=== PATIENT | male | born 1945 | race Caucasian/White ===

== ENCOUNTER → 2017-03-31 | Day surgery (SDC) | payer MEDICARE, OTHER ==
[~2017-03-31] MED LIST: COMPAZINE10 M2 PO; DEXAMETHASONE4 M1 PO; LEVO-T75 MCG PO; LOSARTAN-HCTZ1 EAC1 PO
--- NOTE | ~2017-03-31 | OR ---
Unit #: [id number] #: [id number] Patient: DON MORTON [id number] [facility]. [address] [place], [place] [address] [id number] O MR#: [id number] NAME: DON MORTON ROOM: Date of Procedure: 03/31/2017 Admission Date: 03/31/2017 Surgeon: Casey Vernon Jr., M.D. : 1945 Attending Physician: Casey Vernon Jr., M.D. Primary Care Physician: Kehinde Hancock M.D. OPERATIVE REPORT INDICATIONS FOR PROCEDURE The patient is a 71-year-old white male, who has recently referred to the office for placement of Port-A-Cath. He has cancer and is in need of venous access for chemotherapy. He had a previous Port-A-Cath, but apparently something became a problem with this and it was removed. He is brought in this time for placement of Port-A-Cath in the left subclavian area. The patient understands the procedure including risks, including that of pneumothorax, infection, and problems with the port with thrombosis and consents. PREOPERATIVE DIAGNOSIS Poor venous access in need of chemotherapy for cancer. POSTOPERATIVE DIAGNOSIS Poor venous access in need of chemotherapy for cancer, noting normal anatomy. ANESTHESIA General with LMA and 0.5% Marcaine with epinephrine locally. PROCEDURE PERFORMED Placement of Port-A-Cath, left subclavian area. DESCRIPTION OF PROCEDURE The patient was positioned in supine position. After being anesthetized, he was prepped and draped in routine fashion for placement of Port-A-Cath in the left subclavian area. Two areas were marked with a marking pen, one in the infraclavicular area and the other approximately 6 cm below this. A small 0.5 cm incision was made in the subclavicular area. The introducing needle was introduced into the subclavian vein and a guidewire was introduced down into the superior vena cava and the introducing needle was removed and the dilator introducer was then placed and the dilator and guide were removed and the catheter then inserted with no resistance and advanced down to the superior vena cava. The introducer was removed and a second incision was made approximately 5 to 6 cm in length and a pocket performed inferior to this with the Bovie cautery. The tunneling device was used to tunnel the catheter down to the lower incision and the port was then brought up and the redundant portion of the catheter was excised and the catheter then threaded on the stem of the port and the locking device placed in routine fashion. The port was then tacked down to the pectoralis major muscle with interrupted 0 Ethibond sutures and fluoroscopy was used to check with noting no evidence of any kinks, no Unit #: [id number] #: [id number] Patient: DON MORTON A evidence of any pneumothorax, and no evidence of any problems with the positioning of the tip of the catheter in the superior vena cava. After this was completed, the subcutaneous tissue in both wounds approximated with interrupted 3-0 Vicryl sutures. Skin edges approximated with continuous 5-0 nylon suture. The port was then aspirated and there was excellent blood flow back into the port and then it was charged with heparinized saline solution. Sterile dressings were applied externally. Estimated blood loss less than 10 mL. The patient received less than 1000 mL crystalloid solution during the procedure. Sponges and instruments counts were correct x3. No drains used. No complications. The patient was taken to the recovery room with stable vital signs in satisfactory condition. Dictated by... Casey Vernon Jr., M.D. JMB/karen TD: 04/01/2017 01:32 JOB #: [id number] OPERATIVE REPORT Page 1 of 1 X Casey Vernon MD X PROCEDURE OPERATIVE NOTE
--- NOTE | ~2017-03-31 | CR71 ---
[facility]. [facility] A Service of [facility] & [facility] RADIOLOGY TEXT RESULTS PATIENT: DON MORTON LOCATION: [facility] : [birth year] UNIT #: [id number] AGE: [address]: Casey Vernon MD SEX: M ORDER DR: [id number] [facility] [address] [facility] [place], [place] [address] [id number] O MR#: [id number] Acc #: [id number] NAME: DON MORTON : 1945 SEX: M STUDY DATE/TIME: 03/31/2017 10:15 UNIT: [facility] ROOM: STUDY DESCRIPTION: CR Chest Single View Attending Physician: Casey Vernon Jr., M.D. Ordering Physician: Casey Vernon Jr., M.D. Primary Care Physician: Kehinde Hancock M.D. MEDICAL IMAGING REPORT This report is preliminary unless electronic signature is present EXAM Intraoperative spot views, 03/31/2017. HISTORY Port-A-Cath insertion. FINDINGS 2 spot views were obtained during Port-A-Cath insertion, performed by Dr. Vernon. Dictated by... Kehinde Mata M.D. THIS IS AN ELECTRONICALLY VERIFIED REPORT Kehinde Mata M.D. at 03/31/2017 3:56 PM TASHA/cindy TD: 03/31/2017 13:15 JOB #: [id number] MEDICAL IMAGING REPORT Page 1 of 1 COPY
--- NOTE | ~2017-03-31 | EKG ---
PATIENT: DON MORTON UNIT #: [id number] Ventricular Rate: 87 BPM Atrial Rate: 87 BPM P-R Interval: 160 ms QRS Duration: 96 ms Q-T Interval: 364 ms QTC Calculation(Bezet): 438 ms P [place]: 7 degrees Calculated R [place]: 6 degrees Calculated T [place]: 24 degrees Diagnosis Line: Normal sinus rhythm Diagnosis Line: Cannot rule out Inferior infarct , age Diagnosis Line: undetermined Diagnosis Line: Poor R wave progression questionable lead position Diagnosis Line: or body habitus Diagnosis Line: Borderline ECG Diagnosis Line: No previous ECGs available Diagnosis Line: Confirmed by SANDIE BARRAZA MD ([id number]) on 03/31/2017 Diagnosis Line: 10:05:42 AM INTERPRETING MD: CHRISTI THAYER
[2017-03-31 07:45] LABS: BASOPHIL# 0.1 X10e3 (0-0.3); BASOPHIL% 3.8 % (0-2.5); DIFF IND YES; EOSINOPHIL# 0.4 X10e3 (0-0.7); EOSINOPHIL% 15.6 % (0.0-7.0); HEMATOCRIT 40.6 % (38.0-50.0); LYMPHOCYTE# 0.8 X10e3 (1.0-3.5); LYMPHOCYTE% 26.9 % (17.0-45.0); MEAN CELL VOLUME 91.1 FL (83-96); MEAN CORPUSCULAR HEMOGLOBIN 31.4 PG (28-34); MEAN CORPUSCULAR HGB CONC 34.5 g/dL (30-36); MEAN PLATELET VOLUME 7.7 FL (6.5-11.5); MONOCYTE# 0.5 X10e3 (0-1.0); MONOCYTE% 17.3 % (3.0-12.0); NEUTROPHIL% 36.4 % (40-75); PLATELET COUNT 115 X10e3 (140-420); RED BLOOD COUNT 4.46 X10e (3.90-5.60); RED CELL DISTRIBUTION WIDTH 14.9 % (11.0-15.5); WHITE BLOOD COUNT 2.8 X10e3 (4.0-10.5)
[2017-03-31 08:05] LABS: ANISOCYTOSIS SL; PLATELET ESTIMATE DECREASED (NORMAL); RBC NORMAL YES
[2017-03-31 08:15] LABS: BUN/CREATININE RATIO 10.9; CREATININE SERUM 1.1 mg/dL (0.6-1.4); GLOM FILT RATE Estimated 67.7 mL/min (>60); POTASSIUM 3.7 mmol/L (3.5-5.1)
== END | disposition home or self-care (01) ==
LOC: CSUR 06:56
PROVIDERS: Surgery
DX: C82.91 Follicular lymphoma, unspecified, lymph nodes of head, face, and neck (principal); I10 Essential (primary) hypertension; E03.9 Hypothyroidism, unspecified; E78.5 Hyperlipidemia, unspecified; F17.210 Nicotine dependence, cigarettes, uncomplicated; Z79.51 Long term (current) use of inhaled steroids; Z79.899 Other long term (current) drug therapy; Z98.890 Other specified postprocedural states
CPT/HCPCS: 71010; 76000; 77001; 80048; 85025; 93005; C1788; J0690; J1644; J2250; J2370; J2405; J3010